=== PATIENT | male | born 1985 | race African-American/Black ===

== ENCOUNTER 2019-03-29 00:56 | Emergency (ER) | payer OTHER ==
[~2019-03-29] VITALS: Ht 200.7 cm; Wt 104.8 kg
[2019-03-29 03:57] VITALS: BP 133/86
[2019-03-29] MEDS ORDERED: LIDOCAINE W/ EPINEPHRINE 2% INJ 20ML VIAL IJ ONE (04:45)
[2019-03-29] MEDS ORDERED: cefTRIAXone SOD 1,000 MG VL IM ONE (04:45)
[2019-03-29] MEDS ORDERED: LIDOCAINE 1% HCL (LOCAL ANESTH.) INJ 20ML MDV IJ ONE (04:45)
== END 2019-03-29 05:44 | disposition home or self-care (01) ==
LOC: ER 01:01
DX: L05.01 Pilonidal cyst with abscess (principal)
CPT/HCPCS: 10081; 96372; 99284; J0696; J2001; 10080